=== PATIENT | male | born 1955 | race Caucasian/White ===

== ENCOUNTER 2018-05-14 16:57 | Outpatient (CLI) | payer BC | END 2018-05-14 17:45 | disposition home or self-care (01) | LOC: SLEEP 16:57 | PROVIDERS: ATTEND Otolaryngology Otolaryngology/Facial Plastic Surgery | DX: G47.33 Obstructive sleep apnea (adult) (pediatric) (principal); R06.83 Snoring; G47.10 Hypersomnia, unspecified ==

== ENCOUNTER 2018-06-21 21:13 | Outpatient (CLI) | payer BC | END 2018-06-22 05:16 | disposition home or self-care (01) | LOC: SLEEP 21:13 | PROVIDERS: ATTEND Otolaryngology Otolaryngology/Facial Plastic Surgery | DX: G47.33 Obstructive sleep apnea (adult) (pediatric) (principal); R06.83 Snoring; G47.10 Hypersomnia, unspecified | CPT/HCPCS: 95811 ==

== ENCOUNTER → 2019-08-11 | Outpatient (CLI) | payer BC ==
--- NOTE | 2019-08-11 15:13 | Diagnostic Imaging Report ---
INDICATION: Bilateral knee pain. COMPARISON: None FINDINGS: Multiple radiographic views of bilateral knees were obtained. Advanced tricompartmental osteoarthritic changes are identified bilaterally, left slightly greater than right. This consists of advanced joint space narrowing with pronounced osteophyte formations, particularly involving the medial tibiofemoral compartments where there is underlying sclerotic remodeling to the articular surfaces, left greater than right. There may be small suprapatellar joint effusions. No acute fracture or dislocation is seen. No unexpected radiopaque foreign bodies are identified. IMPRESSION: 1. Advanced tricompartmental osteoarthritic changes bilaterally, left slightly greater than right. 2. No acute fracture or dislocation. Dictated by: Dictated on workstation # [id number]
== END ==
LOC: RAD FS 14:16
PROVIDERS: ATTEND Nurse Practitioner
DX: M17.0 Bilateral primary osteoarthritis of knee (principal)